=== PATIENT | female | born 1935 | race Caucasian/White ===

== ENCOUNTER 2016-06-28 05:57 | Day surgery (SDC) | payer MEDICARE, OTHER ==
[~2016-06-28] VITALS: Ht 160 cm; Wt 82.0 kg
[~2016-06-28 05:57] MED LIST: ASPI-482 PO; CALC600T4 PO; CLOP75TA PO; CYAN500T PO; D3 PO; DILT240C2 PO; DOCU-27 PO; ESOM40CA PO; ESOM40CA25 PO; FURO40TA4 PO; GLYB5TAB3 PO; HYDR-2678 PO; INSU100I13 SQ; INSU100I17 SQ; INSU100V8 SQ; LATA2.5D2 EACHEYE; LOSA50TA6 PO; METF500T4 PO; MULT-658 PO; PARO40TA3 PO; POTA10CA PO; PRAV40TA2 PO; RANI150C PO; SITA50TA PO; TIMO5DRO5 EACHEYE; fentaNYL PF VIAL 100 MCG/2 ML VIAL IV PRN
[2016-06-28] MEDS ORDERED: MEPERIDINE PF 25 MG/ML VIAL. IV PRN (06:00)
[2016-06-28] MEDS ORDERED: MORPHINE SULFATE 4 MG/ML DISP.SYRIN. IV PRN (06:00)
[2016-06-28] MEDS ORDERED: LIDOCAINE 1% 1 ML SYRINGE. ID PRN ×3 (06:00→07:00)
[2016-06-28] MEDS ORDERED: PROCHLORPERAZINE 10 MG/2 ML VIAL. IV PRN ×3 (06:00→07:00)
[2016-06-28] MEDS ORDERED: IV RINGERS,LACTATED 1000ML 1,000 ML IV SCH ×3 (06:00→07:00)
[2016-06-28] MEDS ORDERED: MIDAZOLAM HCL/PF 2 MG/2 ML VIAL. IV PRN ×2 (06:00)
[2016-06-28] MEDS ORDERED: fentaNYL PF VIAL 100 MCG/2 ML VIAL IV PRN ×6 (06:00→12:30)
[2016-06-28] MEDS ORDERED: HYDROmorphone 2 MG/ML VIAL IV PRN ×3 (06:00→07:00)
[2016-06-28] MEDS ORDERED: diphenhydrAMINE 50 MG/ML VIAL IV PRN (06:00)
[2016-06-28] MEDS ORDERED: MORPHINE SULFATE 2 MG/ML DISP.SYRIN. IV PRN ×2 (07:00)
[2016-06-28] MEDS ORDERED: ONDANSETRON PF 4 MG/2 ML VIAL. IV PRN ×2 (07:00)
[2016-06-28] MEDS ORDERED: ONDANSETRON PF 4 MG/2 ML VIAL. ONE (07:13)
[2016-06-28] MEDS ORDERED: DEXAMETHASONE SOD PHOS 20 MG/5 ML VIAL. ONE (07:13)
[2016-06-28] MEDS ORDERED: LIDOCAINE 2% 100 MG/5 ML SYRINGE. ONE (07:13)
[2016-06-28] MEDS ORDERED: FAMOTIDINE 20 MG/2 ML VIAL ONE (07:13)
[2016-06-28] MEDS ORDERED: PROPOFOL 20 ML IV ONE (07:14)
[2016-06-28 07:15] LABS: INR 1.1 (0.8-1.1); PROTHROMBIN TIME PATIENT 13.9 SEC (11.7-14.0)
[2016-06-28] MEDS ORDERED: fentaNYL PF VIAL 100 MCG/2 ML VIAL ONE (07:15)
[2016-06-28] MEDS ORDERED: ROCURONIUM 50 MG/5 ML VIAL. ONE (07:15)
[2016-06-28] MEDS ORDERED: BUPIVACAINE MPF 0.5% 30 ML VIAL. ONE (07:26)
--- NOTE | 2016-06-28 07:48 | DISCH ---
DISCHARGE INSTRUCTIONS Condition on Discharge Condition on Discharge: Stable Activity After Discharge Activity Instructions for Disc: Activity as tolerated Diet after Discharge Diet after Discharge: Diabetic No Calorie Level Wound Incision Care Wound/Incision Care: Change dressing Other wound/incision instructi: remove dressing 2 days may then shower Contacting the DRChapis after DC Call your doctor for: Concerns you may have Follow-Up Follow up with: Yanely 7-10 days Treatment/Equipment after DC Comment: cane or walker for support as needed RADHA BLANK MD June 28, 2016 07:48
[2016-06-28] MEDS ORDERED: HYDR-965 PO (07:49)
[2016-06-28] MEDS ORDERED: PROPOFOL 50 ML IV ONE (07:59)
--- NOTE | 2016-06-28 09:11 | PDOC ---
BRIEF OPERATIVE NOTE Date: June 28, 2016 Pre-Op Diagnosis refractory trochanteric bursitis left hip Post-Op Diagnosis same Procedure Performed left hip scope debridement bursa and it band Surgeon Yanely Anesthesia Type: General Blood Loss 5cc Findings above Complications none RADHA BLANK MD June 28, 2016 09:11
[2016-06-28] MEDS ORDERED: HYDROCODONE/APAP 7.5/325MG TABLET. PO ONE (09:45)
[2016-06-28 11:07] VITALS: BP 135/62
--- NOTE | 2016-06-28 23:19 | OP ---
DATE OF SURGERY: 06/28/2016 PREOPERATIVE DIAGNOSIS: Recalcitrant trochanteric bursitis, left hip. POSTOPERATIVE DIAGNOSIS: Recalcitrant trochanteric bursitis, left hip. PROCEDURES: Left hip arthroscopy, release of the iliotibial band and debridement of trochanteric bursa. SURGEON: Forrest Ny M.D. ANESTHESIA: Spinal. ESTIMATED BLOOD LOSS: 10 mL. COMPLICATIONS: None. OPERATIVE INDICATIONS: The patient has had longstanding lateral sided left hip pain, recurrent, post several injections, now significantly affecting her activities of daily living. I had gone over with her previous stretching of the iliotibial band, possibility of continued injections or other symptomatic treatment and also the possibility of arthroscopic treatment with longitudinal release of the iliotibial band and debridement of trochanteric bursa and the typical results of this procedure, the possibility of no relief or recurrent pain, possibility of medical or other anesthetic complications among others. All her questions were answered and consent was obtained that she agrees to proceed with operative evaluation and treatment. OPERATIVE TECHNIQUE: The patient was identified, procedure verified, patient placed in the supine position on the operating table. After adequate episodes, spinal anesthesia was administered. She was placed in decubitus position, left side up on the beanbag. All bony prominences were well padded and the left hip was prepped and draped in standard sterile fashion. After timeout was performed, the patient and procedure identified and verified and arthroscopic incisions were made proximal and distal to the palpable most prominent area of the greater trochanter. The trocar was placed and fat was cleared off the lateral aspect of the iliotibial band and arthroscope was placed and the bipolar electrocautery was used for coagulation arthroscopically. The midline of the femur bone was established using spinal needle localization and arthroscopic bipolar electrocautery was used to open the iliotibial band in a longitudinal fashion. Proximal and distal to the greater trochanter, the gluteus medius attachment was noted to be intact. Bursa was significantly irritated and was debrided back to stable tissue using the arthroscopic shaver and adequate release and pressure release of the iliotibial band was noted on examination, internal and external rotation. The area was drained off arthroscopic fluid. Portals closed with nylon suture. Sterile dressings were applied. The patient was returned to recovery room in stable condition having tolerated the procedure well. FORREST NY MD DR: ROBERT/trish JOB#: [id number] / [id number]
== END 2016-06-28 11:27 | disposition home or self-care (01) ==
LOC: SURG 05:57
PROVIDERS: ATTEND Orthopaedic Surgery
DX: M70.62 Trochanteric bursitis, left hip (principal); E78.00 Pure hypercholesterolemia, unspecified; I10 Essential (primary) hypertension; E66.9 Obesity, unspecified; K21.9 Gastro-esophageal reflux disease without esophagitis; M19.90 Unspecified osteoarthritis, unspecified site; E11.9 Type 2 diabetes mellitus without complications; F32.9 Major depressive disorder, single episode, unspecified; Z98.41 Cataract extraction status, right eye; Z98.42 Cataract extraction status, left eye; Z90.49 Acquired absence of other specified parts of digestive tract; Z79.01 Long term (current) use of anticoagulants
CPT/HCPCS: 29862; 29999; 36415; 82947; 85610; 85730; A4215; J0690; J2405; J2704; J3010; S0028; J1100; J3490

== ENCOUNTER → 2016-08-02 | Outpatient (CLI) | payer MEDICARE, OTHER ==
[~2016-08-02] MED LIST changes: +HYDR-965 PO; -POTA10CA PO; +POTASSIUM CHLO10 MEQ PO; -fentaNYL PF VIAL 100 MCG/2 ML VIAL IV PRN
--- NOTE | 2016-08-03 20:59 | CARD ---
APPROVED REPORT EXAM: Two-dimensional and M-mode echocardiogram with Doppler and color Doppler. Other Information Quality : Good INDICATION Rheumatic Valves 2D DIMENSIONS RVDd3.1 (2.9-3.5cm)Left Atrium(2D)4.0 (1.6-4.0cm) IVSd1.0 (0.7-1.1cm)Aortic Root(2D)2.5 (2.0-3.7cm) LVDd3.9 (3.9-5.9cm)LVOT Diameter1.9 (1.8-2.4cm) PWd0.9 (0.7-1.1cm)LVDs2.6 (2.5-4.0cm) FS (%) 34.7 %SV43.2 ml LVEF(%)60.0 (>50%) Aortic Valve AoV Peak Panchito.185.8cm/sAoV VTI42.2cm AO Peak GR.13.8mmHgLVOT Peak Panchito.119.8cm/s LVOT VTI 26.23cmAO Mean GR.8mmHg SOLOMON (VMAX)1.15zw3DOO (VTI)1.79cm2 AI P 1/2 Abvj714ql Mitral Valve MV E Rvgojlsm50.7cm/sMV DECEL LUGZ922sj MV A Gjomgoah28.4cm/sMV E Mean Gr.1mmHg MV SVV92tdY/A Ratio0.9 MVA (PHT)4.04cm2 TDI E/Lateral E'15.7E/Medial E'14.6 Tricuspid Valve TR P. Wlbhtmns445po/sRAP ARTKDFYM3yzSr TR Peak Gr.46xzPzSERZ18gqRq Pulmonary Vein S1 [place]79.5cm/sD2 Zhgqateq67.0cm/s PVa [id number] LEFT VENTRICLE The left ventricle is normal size. There is normal left ventricular wall thickness. The left ventricu lar systolic function is normal and the ejection fraction is within normal range. The Ejection Fracti on is 60%. There is normal LV segmental wall motion. Transmitral Doppler flow pattern is Grade I-abno rmal relaxation pattern. RIGHT VENTRICLE The right ventricle is normal size. The right ventricular systolic function is normal. ATRIA The left atrium is mildly dilated. The right atrium size is normal. The interatrial septum is intact with no evidence for an atrial septal defect or patent foramen ovale as noted on 2-D or Doppler imagi ng. AORTIC VALVE The aortic valve is calcified and displays decreased opening. Doppler and Color Flow revealed moderat e aortic regurgitation. Calculated aortic valve area is 1.6 cm2 with maximum pressure gradient of 14 mmHg and mean pressure gradient of 9 mmHg. Doppler and color-flow analysis revealed mild aortic steno sis. MITRAL VALVE The mitral valve is normal in structure There is no evidence of mitral valve prolapse. There is no mi tral valve stenosis. Doppler and Color-flow revealed trace mitral regurgitation. TRICUSPID VALVE The tricuspid valve is normal in structure Doppler and Color Flow revealed trace tricuspid regurgitat ion. There is no pulmonary hypertension. The PA pressure was estimated at 27 mmHg. There is no tricus pid valve stenosis. PULMONIC VALVE The pulmonary valve is normal in structure Doppler and Color Flow revealed trace to mild pulmonic shanique vular regurgitation. There is no pulmonic valvular stenosis. GREAT VESSELS The aortic root is normal in size. The ascending aorta is normal in size. The IVC is normal in size a nd collapses >50% with inspiration. PERICARDIAL EFFUSION There is no evidence of significant pericardial effusion. Critical Notification Critical Value: No <Conclusion> The left ventricular systolic function is normal and the ejection fraction is within normal range. The Ejection Fraction is 60%. Transmitral Doppler flow pattern is Grade I-abnormal relaxation pattern. The left atrium is mildly dilated. The right atrium size is normal. The aortic valve is calcified and displays decreased opening. Calculated aortic valve area is 1.6 cm2 with maximum pressure gradient of 14 mmHg and mean pressure g radient of 9 mmHg. Doppler and color-flow analysis revealed mild aortic stenosis. Doppler and Color-flow revealed trace mitral regurgitation. Doppler and Color Flow revealed trace tricuspid regurgitation. There is no pulmonary hypertension. The PA pressure was estimated at 27 mmHg. Doppler and Color Flow revealed trace to mild pulmonic valvular regurgitation. There is no evidence of significant pericardial effusion.
== END | disposition home or self-care (01) ==
LOC: ECHO 09:26
PROVIDERS: ATTEND Internal Medicine Cardiovascular Disease
DX: I09.9 Rheumatic heart disease, unspecified (principal); I05.0 Rheumatic mitral stenosis
CPT/HCPCS: 93306

== ENCOUNTER → 2016-11-14 | Outpatient (CLI) | payer MEDICARE, OTHER ==
[~2016-11-14] MED LIST changes: +DOCU-109 PO; -DOCU-27 PO; +IOHEXOL 180 MG/ML 10 ML VIAL. ONE; +methylPREDNISolone ACETATE 40 MG/ML VIAL. ONE; +methylPREDNISolone ACETATE 80 MG/ML VIAL. ONE
--- NOTE | 2016-11-14 23:13 | PAIN ---
DATE OF SERVICE: 11/14/2016 DIAGNOSES: 1. Lumbar radiculopathy with lumbar degenerative disk disease, lumbar spinal stenosis. 2. Left sacroiliitis. HISTORY OF PRESENT ILLNESS: The patient is a 80-year-old female who returns for a followup status post left sacroiliac joint injection, last seen on 03/11/2016. The patient had a previous lumbar epidural steroid injections some years before that. The patient reports the pain now is returning in the low back bilaterally across the low back into the lower extremities, radiating to the posterior gluteus, posterolateral thighs and posterior thighs to some extent. The patient reports it is much worse with standing and walking, basically across the low back, but is no longer just on the left side or the right side, it is pretty much across the entire low back, rates it 10 plus on a scale of 10 at its worst, 7 on average and is about a 2 on a scale of 10 today, which is its lowest level. The patient reports this has been awakened her from sleep occasionally, but not every night; better with lying down or sitting down; worse with standing and walking, changing positions, etc. The patient reports no new motor or sensory deficits, no new bowel or bladder incontinence or other complaints. PAST MEDICAL HISTORY: Significant for arthritis, gastroesophageal reflux, osteoporosis, peripheral neuropathy, hyperlipidemia, COPD, type 2 diabetes, osteoporosis, depression, aortic insufficiency. PREVIOUS SURGERIES: Include appendectomy, cholecystectomy, tonsillectomy, bilateral blepharoplasties, bilateral carpal tunnel repairs, intraocular lens implants, rotator cuff repair. SOCIAL HISTORY: The patient does not smoke, does not drink alcohol. She is and is currently retired. FAMILY HISTORY: Significant for heart disease in both mother and father. CURRENT MEDICATIONS: Include paroxetine, diltiazem, losartan, Lasix, timolol eyedrops, Zantac, Xalatan, calcium, NovoLog insulin, daily baby aspirin, potassium, Nexium and pravastatin. ALLERGIES: THE PATIENT IS ALLERGIC TO SULFA. REVIEW OF SYSTEMS: The patient's review of systems is positive for those items mentioned in history of present illness. All systems reviewed and otherwise negative. It is complete, full and well documented on the patient's chart. PHYSICAL EXAMINATION: VITAL SIGNS: The patient's blood pressure is 126/58, pulse 70, respirations 18, temperature 98.7 degrees Fahrenheit. Height is 5 feet 3 inches, weight is 190 pounds. GENERAL: The patient is awake, alert, oriented, appropriate, is a very pleasant demeanor. HEENT: Head shows normocephalic, atraumatic. Extraocular movements are intact and symmetrical. The patient is wearing nasal cannula oxygen at 2 liters. NECK: Shows anterior throat is supple without palpable lymphadenopathy noted. Swallow reflex is symmetrical. Neck shows full rotational motion of the cervical spine without difficulty. CHEST: Shows normal on inspection. Breath sounds are clear, but distant bilaterally. No rales, rhonchi or wheezes were auscultated. HEART: Shows S1 and S2 clear. No murmurs auscultated. ABDOMEN: Obese, soft, nontender, nondistended. No palpable organomegaly is noted. No rebound or guarding demonstrated. BACK: Shows spine grossly in midline. Slight exaggeration of thoracic kyphosis and mild flattening of lumbar lordotic curvature. Lumbar paraspinous muscle shows some moderate tenderness with palpation, but only diffusely bilaterally in the lower lumbar distribution without specific trigger points or radiation. The patient's sacroiliac region shows very mild tenderness with palpation over the left posterior superior iliac spine and very mild tenderness over the right as well. Over the sacroiliac regions themselves very mild tenderness on the left and nontender on the right. No tenderness over the sacrum or sacroiliac regions. EXTREMITIES: Lower extremities show deep tendon reflexes are 1+ in the patellar and tendo-calcaneus tendons, are equal. Motor exam is approximately 4 on a scale of 5, but symmetrical with dorsiflexion, extension, quadriceps and hamstring flexion are intact. Peripheral pulses are 1+ palpable posterior tibial bilaterally. No peripheral edema is noted. PLAN: Options were discussed with the patient and the patient's old chart was reviewed as her current medication regimen updated. Current review of systems updated today as noted. We will proceed with a lumbar epidural steroid injection. She has done well with these in the past. Risks were again discussed including, but not limited to bleeding, infection, possibility of epidural hematoma, subsequent neurologic compromise, dural puncture, headaches, spinal cord and/or nerve damage, side effects of steroid medication and poor results regarding pain control. The patient understands and wishes to proceed. The patient will return to clinic in approximately 2 weeks for a followup. She was counseled on return appointment, activity level and side effects to be aware of. DIAGNOSES: Lumbar radiculopathy with lumbar degenerative disk disease and lumbar spinal stenosis. PROCEDURE: Lumbar epidural steroid injection in translaminar approach, L5-S1 level, using C-arm fluoroscopic guidance under sterile prep and drape using a local anesthetic. MEDICATIONS INJECTED: Total of 120 mg of Depo-Medrol plus 10 mL of preservative-free normal saline and 2 mL Isovue for contrast. CONDITION AT DISCHARGE: Stable. The patient tolerated the procedure well, had no complications. JAMILA LARIOS MD DR: SAMIA/trish JOB#: [id number] / [id number]
== END | disposition home or self-care (01) ==
LOC: PNCL 09:40
PROVIDERS: ATTEND Anesthesiology
DX: M51.16 Intervertebral disc disorders with radiculopathy, lumbar region (principal); M48.06 Spinal stenosis, lumbar region; J44.9 Chronic obstructive pulmonary disease, unspecified; M19.91 Primary osteoarthritis, unspecified site; K21.9 Gastro-esophageal reflux disease without esophagitis; M81.0 Age-related osteoporosis without current pathological fracture; E11.42 Type 2 diabetes mellitus with diabetic polyneuropathy; E78.5 Hyperlipidemia, unspecified; I25.10 Atherosclerotic heart disease of native coronary artery without angina pectoris; E78.00 Pure hypercholesterolemia, unspecified; I11.0 Hypertensive heart disease with heart failure; I50.9 Heart failure, unspecified; E66.9 Obesity, unspecified; F32.9 Major depressive disorder, single episode, unspecified; Z90.49 Acquired absence of other specified parts of digestive tract; Z98.890 Other specified postprocedural states; Z68.36 Body mass index [BMI] 36.0-36.9, adult; Z86.69 Personal history of other diseases of the nervous system and sense organs; Z87.39 Personal history of other diseases of the musculoskeletal system and connective tissue; Z88.2 Allergy status to sulfonamides
CPT/HCPCS: 62323; J1030; J1040

== ENCOUNTER → 2017-02-08 | Outpatient (CLI) | payer MEDICARE, OTHER ==
[~2017-02-08] MED LIST changes: +CONTRAST GIVEN MC PRN; -IOHEXOL 180 MG/ML 10 ML VIAL. ONE; +IOHEXOL 300 MG/ML 100ML VIAL. IV ONE; -methylPREDNISolone ACETATE 40 MG/ML VIAL. ONE; -methylPREDNISolone ACETATE 80 MG/ML VIAL. ONE
--- NOTE | 2017-02-08 12:46 | KCIC ---
RS Compliance Statement: One or more of the following individualized dose reduction techniques were utilized for this examination: 1. Automated exposure control 2. Adjustment of the mA and/or kV according to patient size 3. Use of iterative reconstruction technique CT orbits without contrast 02/08/2017 INDICATION: Proptosis COMPARISON: CT head October 26, 2015 TECHNIQUE: Multiple axial CT images of the orbits were obtained without intravenous contrast. Coronal and sagittal reformats are provided. FINDINGS: Globes are spherical contour. Bilateral lens replacement is noted. When evaluating the relationship of the globes to the interzygomatic line, there is minimal asymmetric proptosis of the right globe. However, measurements appear to be within the limits of normal with the distance of the anterior sclera to the interzygomatic line measuring 14 mm and the distance to the posterior sclera measuring 9 mm. Retro-orbital fat appears normal. Optic nerves are normal in appearance. Extraocular muscles are not enlarged. Paranasal sinuses are well aerated. Visualized portions of the frontal lobes appear normal. Vascular calcification is noted noted involving the cavernous segments of internal carotid arteries. 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 No orbital masses are identified. Extraocular muscles are within normal limits. Electronically signed by: Nayla Parra MD (02/08/2017 12:43 PM) [id number]
== END | disposition home or self-care (01) ==
LOC: KCIC CT 10:35
DX: H05.20 Unspecified exophthalmos (principal)
CPT/HCPCS: 70480; 82565

== ENCOUNTER → 2017-11-09 | Outpatient (CLI) | payer MEDICARE, OTHER ==
[2017-05-09 11:00] VITALS: BP 139/61
[~2017-11-09] MED LIST changes: +AZIT250T6 PO; +BRIN8DRO OP; -CONTRAST GIVEN MC PRN; +IOHEXOL 180 MG/ML 10 ML VIAL. ONE; -IOHEXOL 300 MG/ML 100ML VIAL. IV ONE; +IPRA4AER IH; +LATA2.5D3 EACHEYE; +LIDOCAINE 2% PF 2ML VIAL. ONE; -LOSA50TA6 PO; +LOSA50TA7 PO; +METF500T16 PO; -METF500T4 PO; +POTA10TA12 PO; +POTA20TA82 PO; -POTASSIUM CHLO10 MEQ PO; +VIT1CAPS12 PO; +methylPREDNISolone ACETATE 40 MG/ML VIAL. ONE; +methylPREDNISolone ACETATE 80 MG/ML VIAL. ONE
--- NOTE | 2017-11-09 14:38 | PAIN ---
DATE OF SERVICE: 11/09/2017 PROGRESS NOTE FOR THE PAIN CLINIC DIAGNOSES: 1. Left radiculitis. 2. Lumbar radiculopathy with lumbar degenerative disk disease, lumbar spinal stenosis. HISTORY OF PRESENT ILLNESS: The patient is an 81-year-old female who returns for followup status post lumbar epidural steroid injection as well as a left sacroiliac joint injection, last seen in 10/2016. The patient reports that she did very well, near 100% improvement after the last injection, but the pain is returning now in the low back and left lower extremity. The patient reports it is basically across the low back and the left posterior gluteus, posterior thigh, lateral thigh, into the posterior calf and into the foot on the left side with tingling and numbness in the toes only on the left. The patient reports it is worse with walking and standing. It has been increasing for about a month or two with activity, mostly with walking and standing; better with sitting and lying down. It does not awaken her from sleep at night, she sleeps for about 6 hours at a time. The patient reports her pain is a 10 on a scale of 10 at its worst, average and at its least, is a 10 today. The patient reports it is constant, unbearable, shooting, stabbing, dull, tight, cramping and aching in the low back as well. The patient reports no new motor or sensory deficits, no bowel or bladder incontinence or other complaints. PHYSICAL EXAMINATION: VITAL SIGNS: The patient's blood pressure is 125/68, pulse 80, respirations 18, temperature 97.8 degrees Fahrenheit, height is 63 inches, weighs 173 pounds. GENERAL: The patient is awake, alert, oriented, appropriate, very pleasant demeanor. HEENT: Head shows normocephalic, atraumatic. Extraocular movements are intact and symmetrical. Oral cavity: Mucous membranes moist and pink. Dentition is intact. NECK: Shows anterior throat supple without palpable lymphadenopathy noted. Swallow reflex is symmetrical. CHEST: Shows normal with inspection. Breath sounds are clear to auscultation bilaterally. HEART: Shows S1, S2 clear. No murmurs auscultated. ABDOMEN: Soft, nontender, nondistended. No palpable organomegaly. There is no rebound or guarding demonstrated. BACK: Shows spine grossly in the midline. Slight exaggeration of thoracic kyphosis, mild flattening of lumbar lordotic curvature. Lumbar paraspinous muscle shows symmetrical on inspection. On palpation shows some moderate tenderness but only diffusely without radiation. The patient's low back shows good rotational motion both laterally as well as extension and flexion without difficulty and without pain reported, greater than 10 degrees right and left as well as extension greater than 10 degrees, forward flexion to 45 degrees without difficulty. EXTREMITIES: The patient's lower extremities show deep tendon reflexes 1+ in the patellar and tendo-calcaneus tendons. Motor exam is strong with approximately 4 on a scale of 5, but equal and symmetrical bilaterally. Peripheral pulses are 1+ posterior tibia. No peripheral edema is noted. Options were discussed with the patient. The patient's old chart was reviewed as her current medication regimen updated. Current review of systems updated today as well. We will proceed with a lumbar epidural steroid injection today with fluoroscopic guidance. Risks were again discussed including, but not limited to bleeding, infection, possibility of epidural hematoma, subsequent neurologic compromise, dural puncture, headaches, spinal cord and/or nerve damage, side effects of steroid medication and poor results regarding pain control. The patient understands and wished to proceed. The patient is to return to clinic in approximately 2 weeks for followup, was counseled on return appointment, activity level and side effects to be aware of. DIAGNOSIS: Lumbar radiculopathy with lumbar degenerative disk disease, lumbar spinal stenosis. PROCEDURE: Lumbar epidural steroid injection, translaminar approach at the L5-S1 level using C-arm fluoroscopic guidance under sterile prep and drape using local anesthetic. MEDICATION INJECTED: A total of 120 mg Depo-Medrol plus 10 mL of preservative-free normal saline and 2 mL of Isovue for contrast. CONDITION AT DISCHARGE: Stable. The patient tolerated procedure well, had no complications. JAMILA LARIOS MD DR: SAMIA/trish JOB#: [id number] / [id number]
== END | disposition home or self-care (01) ==
LOC: PNCL 10:57
PROVIDERS: ATTEND Anesthesiology
DX: M51.16 Intervertebral disc disorders with radiculopathy, lumbar region (principal); M48.061 Spinal stenosis, lumbar region without neurogenic claudication; Z88.2 Allergy status to sulfonamides
CPT/HCPCS: 62323; J1030; J1040; J2001; Q9965

== ENCOUNTER → 2017-12-13 | Outpatient (CLI) | payer MEDICARE, OTHER ==
[2017-05-09 11:00] VITALS: BP 139/61
[~2017-12-13] MED LIST changes: +LIDOCAINE 1% PF 2 ML VIAL. ONE; -LIDOCAINE 2% PF 2ML VIAL. ONE
--- NOTE | 2017-12-13 19:54 | PAIN ---
DATE OF SERVICE: 12/13/2017 DIAGNOSES: Lumbar radiculopathy with lumbar degenerative disk disease, lumbar spinal stenosis. HISTORY OF PRESENT ILLNESS: The patient is an 81-year-old female, returns for followup status post lumbar epidural steroid injection x 1 in this series, 11/09/2017. The patient reports it is about 40% better with the pain in her low back and left hip, which was decreased. She was increasing her activity, greater distances walking as well as increasing activity at home and household activities and travel and getting out of a car without much difficulty. Was sleeping well at night and still does. The patient reports she sleeps better on her back, but it is not awakening her from sleep at night. The patient reports it is better with sitting or lying down, worse with walking and standing, changing positions. The patient reports pain is 8 on a scale of 10 at its worst, 7 on average, 7 at its least and is a 7 today. The patient reports it is becoming more constant, more dull and aching across the leg, shooting into the left hip and left lower extremity, mostly in the posterior aspect of the thigh and into the calf at times with extended standing more than about 20 minutes. The patient reports no new motor or sensory deficits. No new bowel or bladder incontinence or other complaints. PHYSICAL EXAMINATION: VITAL SIGNS: The patient's blood pressure 167/68, pulse 80, respirations 18, temperature 98.0 degrees Fahrenheit, height is 5 feet 4 inches, weight is 171 pounds. GENERAL: The patient is awake, alert, oriented, appropriate, very pleasant demeanor. HEENT: Shows normocephalic, atraumatic. Extraocular movements are intact and symmetrical. Oral cavity: Mucous membranes moist and pink. Dentition is intact. NECK: Shows anterior throat supple without palpable lymphadenopathy noted. Swallow reflex is symmetrical. CHEST: Shows normal on inspection. Breath sounds are clear to auscultation bilaterally. HEART: Shows S1, S2 clear. No murmurs auscultated. ABDOMEN: Soft, nontender, nondistended. No palpable organomegaly is noted. No rebound or guarding demonstrated. BACK: Shows spine grossly in the midline, slight exaggeration of thoracic kyphosis and minor flattening of lumbar lordotic curvature. Lumbar paraspinous muscle shows symmetrical on inspection. On palpation shows some moderate tenderness bilaterally, but only diffusely in the low lumbar distribution without radiation. The patient has good rotational motion of lumbar spine both laterally as well as extension and flexion without significant increase in pain. EXTREMITIES: Lower extremities show deep tendon reflexes 1+ in the patellar and tendo calcaneus tendons. Motor exam is strong with 5/5 dorsiflexion, extension, quadriceps and hamstring flexion and symmetrical bilaterally as well. Peripheral pulses are 1+ posterior tibia. No peripheral edema is noted. Options were discussed with the patient. The patient's old chart was reviewed as is her current medication regimen updated. Current review of systems is updated today as well. We will proceed with a lumbar epidural steroid injection today, is the second in this series under fluoroscopic guidance. Risks were discussed including but not limited to bleeding, infection, possibility of epidural hematoma, subsequent neurological compromise, dural puncture, headaches, spinal cord and/or nerve damage, side effects of steroid medication and poor results regarding pain control. The patient understands and wished to proceed. The patient will return to the clinic in approximately 2 weeks for followup, was counseled on return appointment, activity level, and side effects to be aware of. DIAGNOSES: Lumbar radiculopathy with lumbar degenerative disk disease, lumbar spinal stenosis. PROCEDURE: Lumbar epidural steroid injection, translaminar approach L5-S1 level using C-arm fluoroscopic guidance under sterile prep and drape using local anesthetic. MEDICATION INJECTED: A total of 120 mg Depo-Medrol plus 10 mL of preservative-free normal saline and 2 mL of Isovue for contrast. CONDITION AT DISCHARGE: Stable. The patient tolerated the procedure well, had no complications. JAMILA LARIOS MD DR: SAMIA/trish JOB#: [id number] / [id number]
== END | disposition home or self-care (01) ==
LOC: PNCL 10:51
PROVIDERS: ATTEND Anesthesiology
DX: M51.16 Intervertebral disc disorders with radiculopathy, lumbar region (principal); M48.061 Spinal stenosis, lumbar region without neurogenic claudication; Z88.2 Allergy status to sulfonamides
CPT/HCPCS: 62323; J1030; J1040; Q9965

== ENCOUNTER → 2018-02-12 | Outpatient (CLI) | payer MEDICARE, OTHER ==
[2017-05-09 11:00] VITALS: BP 139/61
[~2018-02-12] MED LIST changes: +CYAN10005 IM; +GLUC100018 PO; +HYDR-2765 PO; +HYDR-3165 PO; -HYDR-965 PO; -IOHEXOL 180 MG/ML 10 ML VIAL. ONE; -LIDOCAINE 1% PF 2 ML VIAL. ONE; +LOSA-73 PO; -LOSA50TA7 PO; +PANT20TA2 PO; -methylPREDNISolone ACETATE 40 MG/ML VIAL. ONE; -methylPREDNISolone ACETATE 80 MG/ML VIAL. ONE
[2018-02-12 13:25] LABS: BASO # 0.1 x10^3/uL (0.0-0.2); BASO % 1 % (0-3); EOS # 0.1 x10^3/uL (0.0-0.7); EOS % 1 % (0-3); HEMATOCRIT 36.3 % (36.0-47.0); HEMOGLOBIN 12.1 g/dL (12.0-15.5); LYMPH # 2.4 x10^3/uL (1.0-4.8); LYMPH % 25 % (24-48); MEAN CORPUSCULAR HEMOGLOBIN 32 pg (25-35); MEAN CORPUSCULAR HGB CONC 33 g/dL (31-37); MEAN CORPUSCULAR VOLUME 96 fL (79-100); MONO # 0.9 x10^3/uL (0.0-1.1); MONO % 9 % (0-9); NEUT # 6.1 x10^3uL (1.8-7.7); NEUT % 64 % (31-73); PLATELET COUNT 275 x10^3/uL (140-400); RED BLOOD COUNT 3.79 x10^6/uL (3.50-5.40); RED CELL DISTRIBUTION WIDTH 15.2 % (11.5-14.5); WHITE BLOOD COUNT 9.6 x10^3/uL (4.0-11.0)
[2018-02-12 13:43] LABS: ALBUMIN 3.2 g/dL (3.4-5.0); ALBUMIN/GLOBULIN RATIO 0.8 (1.0-1.7); CALCIUM 8.8 mg/dL (8.5-10.1); CREATININE 1.5 mg/dL (0.6-1.0); GFR 33.3; POTASSIUM 3.5 mmol/L (3.5-5.1); TOTAL BILIRUBIN 0.2 mg/dL (0.2-1.0)
[2018-02-13 01:13] LABS: HEMOGLOBIN A1C 9.7 % (4.8-5.6)
== END | disposition home or self-care (01) ==
LOC: SURGPAT 12:12
PROVIDERS: ATTEND Neurological Surgery
DX: Z01.818 Encounter for other preprocedural examination (principal); M48.061 Spinal stenosis, lumbar region without neurogenic claudication; M51.36 Other intervertebral disc degeneration, lumbar region; E11.9 Type 2 diabetes mellitus without complications
CPT/HCPCS: 36415; 80053; 83036; 85025; 87641

== ENCOUNTER 2018-02-15 10:55 | Observation (INO) | payer MEDICARE, OTHER ==
--- NOTE | 2018-02-14 16:55 | PREOP HP ---
DATE OF SERVICE: 02/15/2018 Les Choi dictating for Dr. Syed Smith. DATE OF SURGERY: 02/15/2018. HISTORY OF PRESENT ILLNESS: The patient is a pleasant 82-year-old who is having difficulty with low back pain, left buttock and posterior thigh and leg pain. She says occasionally the pain can radiate into the lateral leg into the dorsum of her foot and left great toe. She says the pain in her left leg is severe enough that occasionally she feels as though she can become weak. She has had no problem in the right side. The problem started spontaneously. She says her pain is in general 5-6/10. Increasing activity increases her pain. Sitting or decreasing activity helps her. She is taking [place] 7.5. She underwent 2 lumbar epidural steroid injections in the last few weeks, which did not help significantly. PAST MEDICAL HISTORY: Arthritis, blood transfusion, cold sores or fever blisters, heart murmur, hypertension, osteoporosis, rheumatic fever, depression, anemia, COPD, heart disease, mitral valve prolapse, tonsillitis. PAST SURGICAL HISTORY: Tonsillectomy in 194, appendectomy in 194, cholecystectomy in 1987, rotator cuff repair, lens replacement, carpal tunnel release. Eyelid surgery, mesenteric stents. FAMILY HISTORY: The patient has a family history of cancer, diabetes, heart disease and hypertension, migraine headaches. SOCIAL HISTORY: The patient is retired. . She rarely exercises. She has no current or past history of smoking. She denies alcohol consumption. ALLERGIES: BACTRIM AND SULFA. CURRENT MEDICATIONS: Nexium, metformin, Atacand, diltiazem, paroxetine, ranitidine, latanoprost, aspirin, Centrum Silver, vitamin D, calcium. REVIEW OF SYSTEMS: A 12-point review of systems was obtained and is noncontributory except for that mentioned above. PHYSICAL EXAMINATION: NEUROSURGERY EXAMINATION: GENERAL APPEARANCE: Alert, pleasant, no acute distress. HEAD: Normocephalic and atraumatic. SKIN: Warm and dry. MUSCULOSKELETAL: Lumbar paraspinal muscle bulk is normal, restricted range of motion of the lumbar spine, [id number]-[id number] tenderness of the lower lumbar spine with palpation, normal range of motion of the lower extremities bilaterally. EXTREMITIES: No clubbing, cyanosis or edema. NEUROLOGIC: Alert and oriented x 3, normal recent and remote memory, strength 5/5 in bilateral lower extremities. Sensory was intact to light touch in the lower extremities bilaterally. Reflexes were present and symmetric in the bilateral lower extremities, positive straight leg raising on the left, relieved by Lasegue maneuver, negative straight leg raising on the right, normal gait. IMAGING: Reviewed. I reviewed a lumbar MRI scan from 02/05/2018. On that study, there are degenerative changes throughout the lumbar spine. There is a mild S-shaped thoracolumbar scoliosis. At L4-L5, there is predominantly left-sided disk bulging with additional thickened ligamentum flavum and hypertrophic facets resulting in moderate canal stenosis and relatively severe lateral recess and foraminal narrowing bilaterally, but more prominent on the left. At L5-S1, there is a moderate central canal stenosis combined with disk bulging, which is eccentric to the left and severe lateral recess and left foraminal narrowing. ASSESSMENT: I believe the disk problems combined with arthritic degenerative changes at L4-L5 and L5-S1 resulting in nerve root compression and her relatively severe lumbar radiculopathy. She has failed to improve with conservative measures at this point. I think it would be worthwhile for her to consider a 2-level lumbar microdecompression operation on the left side with lumbar microdiskectomy. I did discuss this with her in detail. I carefully outlined the risks with the patient and her daughter. She understands. She would like to go ahead. We will make the arrangements. SYED SMITH MD DR: RENE/trish JOB#: [id number] / [id number]
[2018-02-15] VITALS (8 sets, daily range): BP systolic 93–142; BP diastolic 54–77
[~2018-02-15] VITALS: Ht 160 cm; Wt 75.8 kg
[~2018-02-15 10:55] MED LIST changes: +BACITRACIN 50,000 UNIT in IV NORMAL SALINE 1000ML BAG 1,000 ML IRR ONE; +BUPIVAC MPF-EPI 0.5%-1:200000 30 ML VIAL. ONE; +DEXAMETHASONE SOD PHOS 20 MG/5 ML VIAL. ONE; +GELATIN SPONGE SIZE 100. ONE; +HYDROmorphone 2 MG/ML VIAL IV PRN; +IV RINGERS,LACTATED 1000ML 1,000 ML IV SCH; +KETOROLAC 60 MG/2 ML INJ FOR OR. ONE; +LIDOCAINE 1% PF 2 ML VIAL. ID PRN; +LIDOCAINE 2% PF Vial for OR 5 ML VIAL. ONE; +MORPHINE SULFATE 4 MG/ML VIAL. IV PRN; +ONDANSETRON PF 4 MG/2 ML VIAL. IV PRN; +ONDANSETRON PF 4 MG/2 ML VIAL. ONE; +PHENYLEPHRINE in 0.9% NACL PF 1 MG/10 ML SYRINGE. IV ONE; +PROCHLORPERAZINE 10 MG/2 ML VIAL. IV PRN; +PROPOFOL 20 ML IV ONE; +PROPOFOL 50 ML IV ONE; +REMIFENTANIL 2 MG VIAL. IV ONE; +ROCURONIUM 50 MG/5 ML VIAL. ONE; +THROMBIN TOPICAL 20,000 UNIT SPRAY.SYRN KIT TP ONE; +ePHEDrine PF IN SALINE 50 MG/5 ML DISP.SYRIN IV ONE; +fentaNYL PF VIAL 100 MCG/2 ML VIAL IV PRN; +fentaNYL PF VIAL 100 MCG/2 ML VIAL ONE
[2018-02-15] MEDS ORDERED: ceFAZolin 2GM PREMIX 2 GM/50 ML BAG IV ONE (12:00)
[2018-02-15] MEDS ORDERED: DESFLURANE > 120 MINUTES IH ONE (13:26)
[2018-02-15] MEDS ORDERED: PHENYLEPHRINE 10 MG/ML VIAL. ONE (13:54)
[2018-02-15] MEDS ORDERED: NEOSTIGMINE METHYLSULFATE 5 MG/5 ML SYRINGE. ONE (14:01)
[2018-02-15] MEDS ORDERED: GLYCOPYRROLATE 1 MG/5 ML VIAL. ONE (14:01)
--- NOTE | 2018-02-15 16:12 | OP ---
DATE OF SURGERY: 02/15/2018 PREOPERATIVE DIAGNOSES: Lateral recess stenosis with nerve root compression, radiculopathy, L4-L5 and L5-S1, left. POSTOPERATIVE DIAGNOSES: 1. Lateral recess stenosis with herniated nucleus pulposus, L4-L5, left. 2. Lateral recess stenosis with nerve root compression, L5-S1, left. OPERATION PERFORMED: 1. Hemilaminotomy and microdiskectomy L4-L5, left with decompression of dura and nerve root. 2. Hemilaminotomy with decompression of dura and nerve root, L5-S1, left. This included a microdecompression. The operation was done with EMG monitoring, fluoroscopy, microscopic dissection. O AND M SUPERVISOR: GAVIN Johnson assisted with the exposure, the 2-level decompression and diskectomy as well as closure. OPERATIVE INDICATIONS: The patient is a very pleasant 82-year-old who developed intractable back and left leg pain, which failed conservative measures. IMAGING STUDIES: She has the above-mentioned findings. I did speak with her about her degenerative scoliosis and the potential for future problems or even worsening, which she wished to go ahead with micro-decompressive surgery. I discussed the surgery, the risks, technique and expected operative course and she understood and wished to proceed. DESCRIPTION OF PROCEDURE: Following general endotracheal anesthesia, the patient was positioned prone on the Galen table. Lumbar region prepped and draped in the standard fashion. JANA hose and AV impulse boots were applied for DVT prophylaxis. A microscope was draped. Fluoroscopy was draped and brought into field. Monitoring was established. Ancef 2 grams was given less than 1 hour prior to initiation of the surgery. We were careful to avoid any pressure points. A midline incision was made extending from the L4 to S1. I dissected down skin and subcutaneous tissue, reflected the paraspinal muscles and placed a [place] micro disk retractor, I brought in the microscope and the remainder of surgery done with the microscope using microscopic technique. I burred down a generous hemilaminotomy at L5-S1 on the left side. I trimmed away thickened ligamentum flavum, peeled this away from medial to lateral and removed this and exposing the dura and the exiting S1 root. There was considerable hypertrophic facet and ligament, which was markedly compressing the lateral dura and the takeoff of the root and I gently worked and trimmed this material away and as I worked, the region became very well decompressed. I palpated the disk was firm and no diskectomy was warranted. Following this, I did use small amounts of bone wax as well as bipolar cautery and I assured myself of perfect hemostasis. I irrigated copiously. I felt this level had an excellent decompression and then, I went to L4-L5 in a similar fashion. I drilled and trimmed away thickened ligamentum flavum. I exposed the dura and the exiting L5 root. At this level, there was considerable posterior disk bulging, which was very soft. I incised the annulus gently holding the root medially with a micro nerve root retractor and then, I performed diskectomy with pituitary rongeurs and as I worked, the region became better decompressed and the nerve root became free. I also removed very thickened ligamentum flavum and some of the epidural fat dorsally at both levels to help decompress the central canal and I felt that I had an excellent decompression at this level. I irrigated copiously. I did use small amounts of bone wax as well as bipolar cautery where necessary and hemostasis was excellent throughout. I irrigated copiously. After removing the retractor, I obtained hemostasis in the muscle and then, I closed the wound in layers with absorbable suture. The skin was closed with 4-0 subcuticular stitch. The operation went very well. DELROY SMITH MD DR: RENE/trish JOB#: [id number] / [id number]
[2018-02-15] MEDS ORDERED: 0.9 % SODIUM CHLORIDE 10 ML DISP.SYRIN. IV PRN (16:30)
[2018-02-15] MEDS ORDERED: ACETAMINOPHEN 325 MG TABLET. PO PRN (16:30)
[2018-02-15] MEDS ORDERED: fentaNYL PF VIAL 100 MCG/2 ML VIAL IV PRN (16:30)
[2018-02-15] MEDS ORDERED: NALOXONE 0.4 MG/ML VIAL. IV PRN (16:30)
[2018-02-15] MEDS ORDERED: HYDROcodone/APAP 7.5/325MG 1 TAB TABLET PO PRN (16:30)
[2018-02-15] MEDS ORDERED: DEXTROSE 50% 25 GM / 50ML DISP.SYRIN. IV PRN (16:30)
[2018-02-15] MEDS ORDERED: MAGNESIUM HYDROXIDE 2,400 MG/30 ML ORAL.SUSP. PO PRN (16:30)
[2018-02-15] MEDS ORDERED: diphenhydrAMINE HCL 25 MG CAPSULE PO PRN (16:30)
[2018-02-15] MEDS ORDERED: CALCIUM CARBONATE 500 MG TAB.CHEW PO PRN (16:30)
[2018-02-15] MEDS ORDERED: MAG HYDROX/ALUMINUM HYD/SIMETH 30 ML ORAL.SUSP PO PRN (16:30)
[2018-02-15] MEDS: INSULIN LISPRO 300 UNITS/3 ML INSULN.PEN. SQ SCH (17:00)
[2018-02-15] MEDS: POTASSIUM CL 20MEQ-0.45% NACL 1,000 ML IV SCH (19:00)
[2018-02-15] MEDS: DOCUSATE SODIUM 100 MG CAPSULE. PO SCH (20:49)
[2018-02-15] MEDS: METHOCARBAMOL 750 MG TABLET PO SCH (20:49)
[2018-02-15] MEDS: HYDROcodone/APAP 7.5/325MG 1 TAB TABLET PO PRN (20:50)
[2018-02-15] MEDS ORDERED: FAMOTIDINE 20 MG TABLET. PO SCH (21:00)
[2018-02-15] MEDS ORDERED: LATANOPROST 0.005% OPHTH SOLUTION 2.5ML BOTTLE. OU SCH (21:00)
[2018-02-15] MEDS ORDERED: ATORVASTATIN CALCIUM 20 MG TABLET PO SCH (21:00)
[2018-02-16 03:00] VITALS: BP 113/67
[2018-02-16] MEDS: HYDROcodone/APAP 7.5/325MG 1 TAB TABLET PO PRN (06:00)
[2018-02-16] MEDS: POTASSIUM CL 20MEQ-0.45% NACL 1,000 ML IV SCH (06:06)
[2018-02-16 06:40] VITALS: BP 137/61
[2018-02-16] MEDS ORDERED: PANTOPRAZOLE 40 MG TABLET.DR. PO SCH (07:30)
[2018-02-16] MEDS ORDERED: POTASSIUM CHLORIDE 20 MEQ TABLET.ER. PO SCH (08:00)
[2018-02-16] MEDS ORDERED: INSULIN GLARGINE 300 UNITS/3 ML INSULN.PEN. SQ SCH (08:00)
[2018-02-16] MEDS ORDERED: LOSARTAN POTASSIUM 50 MG TABLET. PO SCH (09:00)
[2018-02-16] MEDS ORDERED: PARoxetine 20 MG TABLET PO SCH (09:00)
[2018-02-16] MEDS ORDERED: ASPIRIN ENTERIC COATED 81 MG TABLET.DR. PO SCH (09:00)
[2018-02-16] MEDS ORDERED: FUROSEMIDE 40 MG TABLET. PO SCH (09:00)
[2018-02-16] MEDS ORDERED: CALCIUM CARBONATE 500 MG TABLET PO SCH (09:00)
[2018-02-16] MEDS ORDERED: POTASSIUM CHLORIDE 10 MEQ TABLET.ER. PO SCH (09:00)
[2018-02-16] MEDS: METHOCARBAMOL 750 MG TABLET PO SCH (09:01)
[2018-02-16] MEDS: DOCUSATE SODIUM 100 MG CAPSULE. PO SCH (09:01)
[2018-02-16] MEDS: INSULIN LISPRO 300 UNITS/3 ML INSULN.PEN. SQ SCH ×2 (09:15→12:16)
--- NOTE | 2018-02-16 10:14 | DISCH ---
DISCHARGE INSTRUCTIONS Condition on Discharge Condition on Discharge: Stable Activity After Discharge Activity Instructions for Disc: Activity as tolerated, Avoid exertion Bathing Instructions: Shower-keep dressing dry Lifting Instructions after Dis: No pulling or pushing, Do not lift >10 pounds Exercise Instruction after Dis: Progress as tolerated Driving Instructions after Dis: Do not drive Weight Bearing Status after Di: As tolerated Diet after Discharge Diet after Discharge: Diabetic No Calorie Level Diet Texture: Regular Liquid Texture: No Liquids Wound Incision Care Wound/Incision Care: Ice to area for comfort, Change dressing Other wound/incision instructi: may remove dressing in 48 hrs if dry then may shower, no soaking Contacting the DRChapis after DC Call your doctor for: Concerns you may have Follow-Up Follow up with: Dr. Braun's nurse in 2 weeks [phone] Treatment/Equipment after DC Adaptive Equipment Issued: DELROY Martinez MD Feb 16, 2018 10:14
[2018-02-16] MEDS ORDERED: DOCU-109 PO (10:17)
[2018-02-16 11:02] VITALS: BP 148/69
--- NOTE | 2018-02-16 11:11 | DS ---
DATE OF DISCHARGE: 02/16/2018 DATE OF SURGERY: 02/15/2018. DISCHARGE DIAGNOSES: Lateral recess stenosis with nerve root compression and radiculopathy, L4-L5 and L5-S1, left. OPERATION PERFORMED: 1. Hemilaminotomy, microdiskectomy, L4-L5, left. 2. Hemilaminotomy and decompression of dura and nerve root, L5-S1, left. HISTORY OF PRESENT ILLNESS: The patient is a pleasant 82-year-old who developed intractable back and left leg pain, which failed to improve with conservative measures. She had the above-mentioned findings. I did speak with her about her degenerative scoliosis and the potential for future problems or even worsening, which she understood and she wished to proceed with microdecompressive surgery. We did discuss the surgery, the risks, the technique and the expected postoperative course, and she understood and wished to proceed. HOSPITAL COURSE: She was admitted to the floor postoperatively. She is doing well. She is up in a chair. She has been ambulating in the room and in the halls with physical therapy. Her pain is well controlled. Instruction was given to her regarding activities. She is in good condition to discharge home. DISCHARGE MEDICATIONS: She will resume her medications per the MRAD. DISCHARGE INSTRUCTIONS: She was instructed regarding incision care, activity restrictions and expectations for the next several weeks. She will follow up in our office in 2 weeks. She understands to call with any questions or concerns. DELROY SMITH MD DR: KILO/trish JOB#: [id number] / [id number]
== END 2018-02-16 12:40 | disposition home or self-care (01) ==
LOC: SURG 10:55 → 4 SOUTHEST 16:09
PROVIDERS: ADMIT Neurological Surgery; ATTEND Neurological Surgery
DX: M48.07 Spinal stenosis, lumbosacral region (principal); M51.16 Intervertebral disc disorders with radiculopathy, lumbar region; I10 Essential (primary) hypertension; J44.9 Chronic obstructive pulmonary disease, unspecified; M81.0 Age-related osteoporosis without current pathological fracture; Z80.9 Family history of malignant neoplasm, unspecified; Z82.49 Family history of ischemic heart disease and other diseases of the circulatory system; Z83.3 Family history of diabetes mellitus; Z90.49 Acquired absence of other specified parts of digestive tract
CPT/HCPCS: 63047; 63048; 76000; 82962; 96372; 97116; 97162; A7015; C1887; G0378; G0379; G8978; G8979; G8980; J0690; J1100; J1815; J1885; J2001; J2370; J2405; J2704; J2710; J3010; J3490; J7030; J7120

== ENCOUNTER → 2018-06-14 | Outpatient (CLI) | payer MEDICARE, OTHER ==
[~2018-06-14] MED LIST changes: -BACITRACIN 50,000 UNIT in IV NORMAL SALINE 1000ML BAG 1,000 ML IRR ONE; -BUPIVAC MPF-EPI 0.5%-1:200000 30 ML VIAL. ONE; -CYAN500T PO; +CYAN500T2 PO; -DEXAMETHASONE SOD PHOS 20 MG/5 ML VIAL. ONE; -GELATIN SPONGE SIZE 100. ONE; -HYDROmorphone 2 MG/ML VIAL IV PRN; -IV RINGERS,LACTATED 1000ML 1,000 ML IV SCH; -KETOROLAC 60 MG/2 ML INJ FOR OR. ONE; -LIDOCAINE 1% PF 2 ML VIAL. ID PRN; -LIDOCAINE 2% PF Vial for OR 5 ML VIAL. ONE; -MORPHINE SULFATE 4 MG/ML VIAL. IV PRN; -ONDANSETRON PF 4 MG/2 ML VIAL. IV PRN; -ONDANSETRON PF 4 MG/2 ML VIAL. ONE; -PHENYLEPHRINE in 0.9% NACL PF 1 MG/10 ML SYRINGE. IV ONE; -PROCHLORPERAZINE 10 MG/2 ML VIAL. IV PRN; -PROPOFOL 20 ML IV ONE; -PROPOFOL 50 ML IV ONE; -REMIFENTANIL 2 MG VIAL. IV ONE; -ROCURONIUM 50 MG/5 ML VIAL. ONE; -THROMBIN TOPICAL 20,000 UNIT SPRAY.SYRN KIT TP ONE; -ePHEDrine PF IN SALINE 50 MG/5 ML DISP.SYRIN IV ONE; -fentaNYL PF VIAL 100 MCG/2 ML VIAL IV PRN; -fentaNYL PF VIAL 100 MCG/2 ML VIAL ONE
--- NOTE | 2018-06-14 12:14 | KCIC ---
Focused ultrasound evaluation in the right infrapatellar region. 06/14/2018 INDICATION: Pain and tenderness COMPARISON STUDY: None Discussion: Focused ultrasound evaluation of an area of palpable concern in anterior infrapatellar region was performed. Small hypoechoic focus is seen within subcutaneous tissues. No internal blood flow is seen. No calcification is identified. Definitive fluid collection is not seen. IMPRESSION: Nonspecific mild focal hypoechoic area in the subcutaneous within subcutaneous soft tissues. The appearance is nonspecific. Resolving hematoma is possible. Correlate with clinical findings. Consider follow-up ultrasound to ensure resolution. If lesion persists MRI evaluation may be helpful. Electronically signed by: Anderson Urbano MD (06/14/2018 12:11 PM) [id number]
== END | disposition home or self-care (01) ==
LOC: KCIC US 10:40
PROVIDERS: ATTEND Internal Medicine
DX: M79.662 Pain in left lower leg (principal); R22.42 Localized swelling, mass and lump, left lower limb
CPT/HCPCS: 76881

== ENCOUNTER → 2019-03-21 | Outpatient (CLI) | payer MEDICARE, OTHER ==
[~2019-03-21] MED LIST changes: +CYAN-25 IM; -CYAN10005 IM; -CYAN500T2 PO; +CYAN500T52 PO; +POTA20TA4 PO; -POTA20TA82 PO
--- NOTE | 2019-03-21 15:55 | CARD ---
MR#: [id number] Date of Study: 03/21/2019 Ordering Physician: LOUISA MAST, Referring Physician: LOUISA MAST, Tech: Yanna Ryan APPROVED REPORT EXAM: Two-dimensional and M-mode echocardiogram with Doppler and color Doppler. Other Information Quality : AverageHR: 65bpm INDICATION Dyspnea RISK FACTORS Hypertension Hyperlipidemia Diabetes 2D DIMENSIONS RVDd3.5 (2.9-3.5cm)Left Atrium(2D)3.2 (1.6-4.0cm) IVSd1.1 (0.7-1.1cm)Aortic Root(2D)2.8 (2.0-3.7cm) LVDd4.6 (3.9-5.9cm)LVOT Diameter2.1 (1.8-2.4cm) PWd1.1 (0.7-1.1cm)LVDs3.0 (2.5-4.0cm) FS (%) 34.5 %SV63.0 ml LVEF(%)63.7 (>50%) Aortic Valve AoV Peak Panchito.240.3cm/sAoV VTI48.8cm AO Peak GR.23.1mmHgLVOT Peak Panchito.124.7cm/s LVOT VTI 27.99cmAO Mean GR.12mmHg SOLOMON (VMAX)1.39ho2COX (VTI)1.95cm2 AI P 1/2 Wujr677iz Mitral Valve MV E Kufmyhae19.1cm/sMV DECEL ANAE648wi MV A Rrgkqxcb72.3cm/sMV E Mean Gr.1mmHg MV QOH14xyE/A Ratio1.0 MVA (PHT)3.94cm2 TDI E/Lateral E'11.2E/Medial E'15.3 Pulmonary Valve PV Peak Arsaoixd20.6cm/sPV Peak Grad.4mmHg Tricuspid Valve TR P. Vnexxoog503oy/sRAP XHNGYBXE9tdGb TR Peak Gr.99jcGbWGUO13jwOe Pulmonary Vein S1 Ocqovwbs32.7cm/sD2 Pvmqadrt12.6cm/s PVa [id number] LEFT VENTRICLE The left ventricle is normal size. There is mild concentric left ventricular hypertrophy. The left ve ntricular systolic function is normal and the ejection fraction is within normal range. The Ejection Fraction is 55-60%. There is normal LV segmental wall motion. Transmitral Doppler flow pattern is Gra de II-pseudonormal filling dynamics. RIGHT VENTRICLE The right ventricle is normal size. There is normal right ventricular wall thickness. The right ventr icular systolic function is normal. ATRIA The left atrium size is normal. The right atrium size is normal. The interatrial septum is intact wit h no evidence for an atrial septal defect or patent foramen ovale as noted on 2-D or Doppler imaging. AORTIC VALVE The aortic valve is calcified but opens well. Doppler and Color Flow revealed mild aortic regurgitati on. Calculated aortic valve area is 1.91 cm2 with maximum pressure gradient of 24 mmHg and mean press ure gradient of 13 mmHg. There is minimal valvular aortic stenosis. MITRAL VALVE The mitral valve is normal in structure and function. There is no evidence of mitral valve prolapse. There is no mitral valve stenosis. Doppler and Color Flow revealed no mitral valve regurgitation note d. TRICUSPID VALVE The tricuspid valve is normal in structure and function. Doppler and Color Flow revealed trace tricus pid regurgitation with an estimated PAP of 30 mmHg. There is no tricuspid valve stenosis. PULMONIC VALVE Doppler and Color Flow revealed trace pulmonic valvular regurgitation. GREAT VESSELS The aortic root is normal in size. The ascending aorta is normal in size. The IVC is normal in size a nd collapses >50% with inspiration. PERICARDIAL EFFUSION There is no evidence of significant pericardial effusion. Critical Notification Critical Value: No <Conclusion> The left ventricle is normal size. The left ventricular systolic function is normal and the ejection fraction is within normal range. The Ejection Fraction is 55-60%. There is mild concentric left ventricular hypertrophy. Doppler and Color Flow revealed mild aortic regurgitation. Calculated aortic valve area is 1.91 cm2 with maximum pressure gradient of 24 mmHg and mean pressure gradient of 13 mmHg. There is minimal valvular aortic stenosis. Doppler and Color Flow revealed no mitral valve regurgitation noted. Doppler and Color Flow revealed trace tricuspid regurgitation with an estimated PAP of 30 mmHg. Signed by : Louisa Mast MD Electronically Approved : 03/21/2019 15:55:08
== END | disposition home or self-care (01) ==
LOC: ECHO 12:41
PROVIDERS: ATTEND Internal Medicine Cardiovascular Disease
DX: I35.1 Nonrheumatic aortic (valve) insufficiency (principal); I20.9 Angina pectoris, unspecified; I51.7 Cardiomegaly
CPT/HCPCS: 93306

== ENCOUNTER → 2019-11-11 | Outpatient (CLI) | payer MEDICARE, OTHER ==
[~2019-11-11] MED LIST changes: -CALC600T4 PO; +CALC600T6 PO; +FAMO40TA4 PO; +IOHEXOL 180 MG/ML 10 ML VIAL. ONE; +TRAZ-118 PO; +Vitamin d3; +methylPREDNISolone ACETATE 40 MG/ML VIAL. ONE; +methylPREDNISolone ACETATE 80 MG/ML VIAL. ONE
--- NOTE | 2019-11-11 11:03 | PDOC ---
Progress Note - Pain Clinic Date of Service: DOS: DATE: 11/11/19 TIME: 10:58 Diagnosis: Dx: Lumbar radiculopathy with lumbar degenerative disease lumbar spinal stenosis and lumbar postlaminectomy syndrome Left sacroiliitis History or Present Illness: HPI: 83-year-old female returns follow-up status post previous lumbar epidural steroid injections last seen November 2017. Patient did very well with about a 80% improvement however pain returned and she had subsequent lumbar decompressive surgery and number of 2018 and did well with this for a temporary time also. Patient reports now the pain is returning in the low back and the left lower extremity most significantly posterior gluteus and thigh posterior thigh and sometimes in the posterior calf mostly on the left side occasionally on the right patient reports worse with walking standing changing positions she is using a walker to ambulate which is helpful but feels that her left leg is more fatigued and more weak than the right. Patient rates her pain as a 9 on a scale of 10 at all times worst average and least over the past week and is a 9 today patient describes it as constant aching dull and tight shooting in the left leg and cramping in the back. Reports no new motor or sensory deficits no bowel or bladder incontinence reports it awakens her from sleep very infrequently most nights she sleeps fairly well. Physical Exam: VS: Blood pressure is 143/68 pulse 67 respiration 16 temperature 98.3 F weight is 148 pounds PE: PHYSICAL EXAMINATION: GENERAL: The patient is awake, alert, oriented, appropriate, very pleasant demeanor HEENT: Shows normocephalic, atraumatic. Extraocular movements are intact and symmetrical. Oral cavity: Mucous membranes moist and pink. Dentition is intact. NECK: Shows anterior throat supple without palpable lymphadenopathy noted. Swallow reflex symmetrical. CHEST: Shows normal on inspection. Breath sounds are clear bilaterally, no rales rhonchi or wheezes auscultated. HEART: Shows S1, S2 clear. No murmurs auscultated. ABDOMEN: Soft, nontender, nondistended. No palpable organomegaly is noted. No rebound or guarding demonstrated. BACK: Shows spine grossly in the midline. Normal-appearing cervical lordotic curvature. There is increased thoracic kyphosis, some minor flattening of the lumbar lordotic curvature. Lumbar paraspinous muscles show symmetrical on inspection, well-healed midline surgical scar, on palpation shows some moderate tenderness diffusely throughout the upper, middle and lower distribution of the paraspinous muscles bilaterally and also into the lower thoracic paraspinous musculature, firm and tender, but without specific trigger points, without radiation of pain. The patient has good rotational motion of the lumbar spine, both laterally as well as extension and flexion without significant difficulty. No tenderness over the spinous processes, sacrum or sacroiliac regions. EXTREMITIES: Lower extremities show deep tendon reflexes 1+ in the patellar and tendo calcaneus tendons. Motor exam is 4 on a scale of 5 with right dorsiflexion, extension, quadriceps and hamstring flexion and 4/5 on the left. Peripheral pulses are 1+ posterior tibial. No peripheral edema is noted bilaterally. Lower extremities are warm and dry to touch, equal in color and appearance. Straight leg raise noted to be negative on the right, left side is mildly positive at about 40 degrees decreased with knee flexion. Gaenslen's and Veto's maneuvers are negative bilaterally. The patient is able to stand, u sing a walker has a favoring gait favoring the left lower extremity. SKIN: Shows warm and dry, good turgor. No edema. No sores, rashes or bruising throughout. Procedure: Procedure: Options were discussed with the patient. Patient will chart reviews her current medication regimen updated current review of systems updated today as well. We will proceed with a lumbar epidural steroid injection today with fluoroscopic guidance. Risks were discussed including but not limited to: Bleeding, infection, possibility of epidural hematoma and subsequent neurological compromise, dural puncture, headaches, spinal cord and/or nerve damage, side effects of steroid medication, and poor results regarding pain control. Patient understands wished to proceed. Patient return to the clinic in approximately 2 weeks for follow-up was counseled as to return appointment activity level and side effects to be aware of. Medication Injected: Med Injected: Procedure is lumbar epidural steroid injection under local anesthetic using sterile prep and drape at the L5-S1 level using C-arm fluoroscopic guidance in both AP and lateral views medications injected is 120 mg Depo-Medrol + 10 mL preservative-free normal saline and 2 mL contrast- condition at discharge is stable patient tolerated procedure well had no complications. Condition at Discharge: Condition at Discharge: Condition at discharge is stable patient tolerated the procedure well had no complications. JAMILA LARIOS MD Nov 11, 2019 11:03
== END | disposition home or self-care (01) ==
LOC: PNCL 10:10
PROVIDERS: ATTEND Anesthesiology
DX: M51.16 Intervertebral disc disorders with radiculopathy, lumbar region (principal); M48.061 Spinal stenosis, lumbar region without neurogenic claudication; M96.1 Postlaminectomy syndrome, not elsewhere classified; M46.1 Sacroiliitis, not elsewhere classified; I12.9 Hypertensive chronic kidney disease with stage 1 through stage 4 chronic kidney disease, or unspecified chronic kidney disease; N18.3 Chronic kidney disease, stage 3 (moderate); E11.22 Type 2 diabetes mellitus with diabetic chronic kidney disease; F41.9 Anxiety disorder, unspecified; Z79.82 Long term (current) use of aspirin; Z79.899 Other long term (current) drug therapy; Z83.3 Family history of diabetes mellitus; Z82.49 Family history of ischemic heart disease and other diseases of the circulatory system; Z83.6 Family history of other diseases of the respiratory system; Z94.0 Kidney transplant status; Z79.84 Long term (current) use of oral hypoglycemic drugs
CPT/HCPCS: 62323; J1030; J1040; Q9965

== ENCOUNTER → 2019-11-28 | Outpatient (CLI) | payer MEDICARE, OTHER ==
--- NOTE | 2019-11-28 12:51 | PDOC ---
Progress Note - Pain Clinic Date of Service: DOS: DATE: 11/28/19 TIME: 12:45 Diagnosis: Dx: Lumbar radiculopathy with lumbar degenerative disc disease lumbar spinal stenosis and post lumbar laminectomy syndrome Left sacroiliitis History or Present Illness: HPI: 83-year-old female returns follow-up status post lumbar epidural steroid injection x1 November 11, 2019. Patient ports did very well about 45% improvement to the last few days the pain is beginning to return in the low back and into the left lower extremity posterior gluteus posterior thigh posterior calf and the hip patient reports worse with walking standing changing positions initially she was doing much better with distance walking sleeping better doing household activities and she still walks with her cane and she has it with her today holding it in her right hand. Patient reports no new motor or sensory deficits no new bowel or bladder incontinence describes her pain is aching and sharp sometimes shooting and stabbing in the low back and left leg patient desc ribes the pain is a 6 on a scale of 10 is worse over the past week 6 on average 3 at its least and is a 6 today. Physical Exam: VS: Blood pressure is 147/60 pulse 68 respirations are 16 temperature 98.6 3 Fahrenheit weight is 140 pounds PE: PHYSICAL EXAMINATION: GENERAL: The patient is awake, alert, oriented, appropriate, very pleasant in demeanor HEENT: Shows normocephalic, atraumatic. Extraocular movements are intact and symmetrical. NECK: Shows anterior throat supple without palpable lymphadenopathy noted. Swallow reflex symmetrical. CHEST: Shows normal on inspection. Breath sounds are clear bilaterally, no rales rhonchi or wheezes. HEART: Shows S1, S2 clear. No murmurs auscultated. ABDOMEN: Soft, nontender, nondistended, obese. No palpable organomegaly is noted. No rebound or guarding demonstrated. Patient does have a small incisional hernia which is easily reducible approximately 2 cm or less at the superior aspect of well-healed midline surgical scar from previous exploratory laparotomy. BACK: Shows spine grossly in the midline. Normal-appearing cervical lordotic curvature. There is slightly increased thoracic kyphosis, some minor flattening of the lumbar lordotic curvature, with well-healed surgical scar in the midline. Lumbar paraspinous muscles show symmetrical on inspection, on palpation shows some moderate tenderness diffusely throughout the upper, middle and lower distribution of the paraspinous muscles bilaterally without trigger points, without radiation of pain. The patient has good rotational motion of the lumbar spine, both laterally as well as extension and flexion without significant difficulty. No tenderness over the spinous processes, sacrum or sacroiliac regions. EXTREMITIES: Lower extremities show deep tendon reflexes 1+ in the patellar and tendo calcaneus tendons. Motor exam is 4 on a scale of 5 with right dorsiflexion, extension, quadriceps and hamstring flexion and 4/5 on the left. Peripheral pulses are 1+ posterior tibial. No peripheral edema is noted bilaterally. Lower extremities are warm and dry to touch, equal in color and appearance. SKIN: Shows warm and dry, good turgor. No edema. No sores, rashes or bruising throughout. Procedure: Procedure: Options were discussed with the patient. Patient chart was reviewed as her current medication regimen updated current review of systems updated today as well. We will proceed with a second in the series lumbar epidural steroid injec tion today with fluoroscopic guidance. Risks were discussed including but not limited to: Bleeding, infection, possibility of epidural hematoma and subsequent neurological compromise, dural puncture, headaches, spinal cord and/or nerve damage, side effects of steroid medication, and poor results regarding pain control. Patient understands wished to proceed. Patient will return to the clinic in approximate 2 weeks for follow-up. Was counseled as to return appointment activity level and side effects to be aware of. Medication Injected: Med Injected: Procedure is lumbar epidural steroid injection under local anesthetic using sterile prep and drape at the L5-S1 level using C-arm fluoroscopic guidance in both AP and lateral views medications injected is 120 mg Depo-Medrol + 10 mL preservative-free normal saline and 2 mL contrast- condition at discharge is stable patient tolerated procedure well had no complications. Condition at Discharge: Condition at Discharge: Condition at discharge stable patient tolerated procedure well had no complications. JAMILA LARIOS MD Nov 28, 2019 12:51
== END | disposition home or self-care (01) ==
LOC: PNCL 10:58
PROVIDERS: ATTEND Anesthesiology
DX: M51.16 Intervertebral disc disorders with radiculopathy, lumbar region (principal); M48.061 Spinal stenosis, lumbar region without neurogenic claudication; I12.9 Hypertensive chronic kidney disease with stage 1 through stage 4 chronic kidney disease, or unspecified chronic kidney disease; E11.22 Type 2 diabetes mellitus with diabetic chronic kidney disease; Z88.2 Allergy status to sulfonamides; Z79.82 Long term (current) use of aspirin; Z79.899 Other long term (current) drug therapy; Z79.84 Long term (current) use of oral hypoglycemic drugs
CPT/HCPCS: 62323; J1030; J1040; Q9965

== ENCOUNTER → 2020-07-31 | Outpatient (CLI) | payer MEDICARE, OTHER ==
[~2020-07-31] MED LIST changes: -CALC600T6 PO; +CALC600T60 PO; -CYAN500T52 PO; +CYAN500T7 PO; -IOHEXOL 180 MG/ML 10 ML VIAL. ONE; +REGADENOSON 0.4 MG/5 ML DISP.SYRIN. IV ONE; -methylPREDNISolone ACETATE 40 MG/ML VIAL. ONE; -methylPREDNISolone ACETATE 80 MG/ML VIAL. ONE
--- NOTE | 2020-07-31 17:44 | RAD ---
MR#: [id number] Date of Study: 07/31/2020 Ordering Physician: LOUISA MAST, Referring Physician: PRAFUL WALLACE Tech: RT Preet (R) (N) APPROVED REPORT Test Type: Pharmacological Stress Nurse/Tech: Danielle Ryan R.N. Test Indications: chest pain Cardiac History: copd, valve, htn, dm Medications: see ehr Medical History: see ehr Resting ECG: sr Resting Heart Rate: 55 bpm Resting Blood Pressure: 176/57mmHg Pretest Chest Pain: No chest pain Nurse/Tech Notes lungs cta, heart tones regular Consent: The procedure was explained to the patient in lay terms. Informed consent was witnessed. [place] eout was entered into [employer]. History and Stress Test performed by RYLAN Davila, JOHN (R) (N) Pharm. Details Pharmacologic stress testing was performed using 0.4mg per 5ml of regadenoson given intravenously ove r 7-10 seconds. Stress Symptoms No chest pain or symptoms. pt has a unsettled look on her face, but could not describe any symptoms, VSS POST EXERCISE Reason for Termination: Infusion complete Target HR: No Max HR: 104 bpm Max Blood Pressure: 151/51mmHg Chest Pain: No. Arrhythmia: No. ST Change: No. INTERPRETATION Stress EKG Conclusion: The resting EKG shows a sinus rhythm with mild nonspecific T wave changes. The stress EKG shows no significant changes from baseline. No EKG evidence of stress-induced ischemia. Imaging Protocol IMAGE PROTOCOL: Rest Tc-99m/stress Tc-99m 1 day Rest: Stress: Viability: Radiopharm.Tc99m [id number] Sestamibi Llty27aLg 30mCi Duration 15min. 10min. Img Date 07/31/2020 07/31/2020 Inj-Img [id number]. 60min. Rest Admin Site:IV - Left AntecubitalAdministrator:RT Preet (R)(N) Stress Admin Site: IV - Left AntecubitalAdministrator: RYLAN Davila, ARRT (R)(N) STRESS DATA End Diast. Vol.75.0mlAv. Heart Rate63.0bpm End Syst. Vol.8.0mlCO Index BSA0.0L/min Myocardial Htnl506.0gEject. Uuxwioaa68.0% Stress Rates Pk. Fill Rate2.78EDV/secLVtime Pk. Fill 148.00msec Pk. Empty Rate3.82ESV/secLVtime Pk. Asujs537.95msec 1/3 Pk. Fill1.82EDV/sec Stress Scores Regional WT0.00Summed WT4.00 Regional WM0.00Summed WM0.00 LV Perfusion The stress scans showed no significant defects. The rest scans showed no significant defects. Nuclear imaging showed no reversible ischemia or infarct. Wall Motion Left ventricular systolic function is normal with no regional wall motion abnormalities and an ejecti on fraction of greater than 70%. LV Perf. Quant 17 Seg. SSS3.00 17 Seg. SRS6.00 17 Seg. SDS0.00 Stress Defect Extent (% LAD)7.50Rest Defect Extent (% LAD)1.90Rev. Defect Extent (% LAD)0.00 Stress Defect Extent (% LCX) 2.50Rest Defect Extent (% LCX)21.30Rev. Defect Extent (% LCX)0.00 Stress Defect Extent (% RCA)0.00Rest Defect Extent (% RCA)0.00Rev. Defect Extent (% RCA)0.00 Stress Defect Extent (% JAKY)5.70Rest Defect Extent (% JAKY)8.50Rev. Defect Extent (% JAKY)0.00 Conclusion 1. No EKG evidence of stress-induced ischemia. 2. Nuclear imaging shows no reversible ischemia or infarct. 3. Normal left ventricular systolic function with ejection fraction of greater than 70%. 4. Low risk Lexiscan nuclear stress test. Signed by : Louisa Mast MD Electronically Approved : 07/31/2020 17:44:33
== END ==
LOC: NM 08:50
PROVIDERS: ATTEND Internal Medicine Cardiovascular Disease
DX: I35.1 Nonrheumatic aortic (valve) insufficiency (principal); I10 Essential (primary) hypertension
CPT/HCPCS: 78452; 93017; A9500; J2785